=== PATIENT | male | born 1955 | race Caucasian/White ===

== ENCOUNTER → 2016-09-27 | Outpatient (CLI) | payer BC ==
[~2016-09-27] MED LIST: ADVIL200 MG PO; ALDACTONE25 MG PO; CALAN SR GENER120 MG PO; ELIQUIS5 MG PO; IBUPROFEN800 MG PO; LANOXIN (DIGI125 MCG PO; LASIX40 MG PO; LEVOTHROID (SY88 MCG PO; LIPITOR40 MG PO; METAMUCIL PACKE1 PKT PO; PRILOSEC20 MG PO; PROAIR HFA8.5 GM INH; SYMBICORT 16010.2 GM INH; VERAPAMIL PO
== END | disposition disaster alternative care site (69) ==
LOC: GRAD 15:11
DX: E29.1 Testicular hypofunction (principal); E03.9 Hypothyroidism, unspecified; I10 Essential (primary) hypertension; I48.92 Unspecified atrial flutter; K80.20 Calculus of gallbladder without cholecystitis without obstruction; R59.0 Localized enlarged lymph nodes; Z90.79 Acquired absence of other genital organ(s)
CPT/HCPCS: Q9967